=== PATIENT | male | born 1980 | race Two or more races ===

== ENCOUNTER 2018-12-08 17:03 | Emergency (ER) | payer MEDICAID ==
[~2018-12-08] VITALS: Ht 172.7 cm; Wt 90.0 kg
[2018-12-08] MEDS ORDERED: SODIUM CHLORIDE 0.9% 1,000 ML IV ONE (17:57)
[2018-12-08 18:50] LABS: BASOPHILS % 0.5 % (0.0-2.0); EOSINOPHILS % 5.4 % (0.0-5.0); HEMATOCRIT. 45.3 % (42.0-52.0); HEMOGLOBIN. 15.7 g/dL (14.0-18.0); LYMPHOCYTES % 44.2 % (20.0-50.0); MEAN CORPUSCULAR HEMOGLOBIN 31.7 pg (28.0-32.0); MEAN CORPUSCULAR VOLUME 91.7 fL (80.0-94.0); MEAN PLATELET VOLUME 10.1 fl (7.4-10.4); MONOCYTES % 9.5 % (2.0-8.0); NEUTROPHILS % 40.4 % (40.0-76.0); PLATELET 163 x1000/uL (130-400); RED BLOOD CELL COUNT 4.95 mill/uL (4.7-6.1); RED CELL DISTRIBUTION WIDTH 13.9 % (11.6-14.6)
[2018-12-08 18:57] LABS: CHLORIDE 106 mEq/L (98-107)
[2018-12-08 20:31] LABS: CLARITY URINE CLEAR (CLEAR); COLOR URINE YELLOW (YELLOW); KETONES URINE NEGATIVE (NEGATIVE); LEUKOCYTE ESTERASE URINE NEGATIVE (NEGATIVE); NITRITE URINE NEGATIVE (NEGATIVE); OCCULT BLOOD URINE NEGATIVE (NEGATIVE); PROTEIN URINE NEGATIVE (NEGATIVE); SPECIFIC GRAVITY URINE 1.019 (1.005-1.030)
[2018-12-08] MEDS ORDERED: VALPROIC ACID 250MG CAPSULE PO ONE (21:00)
[2018-12-08] MEDS ORDERED: LEVETIRACETAM 500MG PREMIX 100 ML IV ONE (21:00)
[2018-12-08] MEDS ORDERED: FLUOXETINE HCL 20MG CAPSULE PO ONE (21:00)
[2018-12-08] MEDS ORDERED: VALPROATE SODIUM 250MG/5ML UDC PO NR (21:30)
[2018-12-08 23:30] VITALS: BP 113/64
== END 2018-12-08 23:30 | disposition home or self-care (01) ==
LOC: ER 17:03
DX: J96.10 Chronic respiratory failure, unspecified whether with hypoxia or hypercapnia (principal); Z93.0 Tracheostomy status
CPT/HCPCS: 36415; 71045; 80053; 80165; 81003; 83605; 83880; 84484; 85025; 93005; 94640; 96365; 99284; J1953; J7030; Z7610